=== PATIENT | female | born 1960 | race Caucasian/White ===

== ENCOUNTER → 2016-09-07 | Outpatient (CLI) | payer BC ==
--- NOTE | 2016-09-08 13:19 | MM ---
Reason for exam: clinical finding. History: Patient is postmenopausal. Indicated problem(s): lump or thickening in the left breast. Physical Findings: Nurse Summary: 6cm nodule in the left breast at 10-1 o'clock (nurse mm). MG Diagnostic Mammo w CAD JAXSNO Bilateral CC and MLO view(s) were taken. The breast tissue is heterogeneously dense. This may lower the sensitivity of mammography. Finding: There is a 42 mm high density, round mass in the 12 o'clock position of the left breast. There is skin thickening on the left. These results were verbally communicated with the patient and result sheet given to the patient on 09/07/16. ASSESSMENT: Suspicious, BI-RAD 4 RECOMMENDATION: Surgical consultation and ultrasound core biopsy of the left breast. x2 Called [facility] with mammographic findings and has scheduled an appointment for the patient for 09/19/16 at 1:[address] Anderson. PRELIMINARY REPORT CALLED AND FAXED TO DR. ANDERSON ON 09/08/16 AT 300/TP.
--- NOTE | 2016-09-08 13:26 | USB ---
Reason for exam: clinical finding. History: Patient is postmenopausal. US Breast LT Left breast ultrasound includes all four quadrants, the retroareolar region and axilla. Finding demonstrate a 0.8 x 0.6 x 0.5cm solid lesion at 12 o'clock for which a biopsy is recommended, a 0.5 x 0.3 x 0.5cm solid lesion at 1 o'clock, a 0.9 x 0.6 x 0.9 solid, vascular lesion at 2 o'clock, a 4.0 x 4.8 x 4.1cm solid lesion at 11 o'clock for which a biopsy is recommended, and a 0.9 x 0.7 x 0.9cm solid questionable node at axilla tail. These results were verbally communicated with the patient and result sheet given to the patient on 09/07/16. ASSESSMENT: Suspicious, BI-RAD 4 RECOMMENDATION: Ultrasound core biopsy of the left breast. Called Dr. Prasad with mammographic findings and has scheduled an appointment for the patient for 09/19/16 at 1:[address] Anderson. PRELIMINARY REPORT CALLED AND FAXED TO DR. ANDERSON ON 09/08/16 AT 300/TMP.
== END | disposition home or self-care (01) ==
LOC: RADMAMWWP 14:12
PROVIDERS: ATTEND Family Medicine
DX: N63 Unspecified lump in breast (principal); R92.8 Other abnormal and inconclusive findings on diagnostic imaging of breast
CPT/HCPCS: 76641; G0204

== ENCOUNTER → 2016-09-21 | Day surgery (SDC) | payer BC ==
[~2016-09-21] MED LIST: BACITRACIN OINT 1 EACH PACKET TOPICAL ONE; LIDOCAINE 1% INJ 10MG/ML (20 ML MDV) ONE; LIDOCAINE 1%-EPI 1:100,000 20 ML VIAL ONE
--- NOTE | 2016-09-21 14:25 | USB ---
EXAMINATION TYPE: US biopsy breast add'l VAD LT, US biopsy breast VAD LT DATE OF EXAM: 09/21/2016 CLINICAL HISTORY: R92.8 ABNORMAL MAMMOGRAM. TECHNIQUE: Ultrasound guided core biopsy of left 11:00 mass and first abnormal lymph node left breast. COMPARISON: NONE FINDINGS: The procedure of ultrasound guided core biopsy was explained to the patient. Benefits, alternatives, and risks were discussed. An informed consent was then obtained. The patient was placed in supine positioning for imaging and for the procedure. The overlying skin was prepped and draped in usual sterile fashion. Lidocaine buffered with bicarbonate was used as anesthetic into the skin and subcutaneous tissue. A rose was made with surgical scalpel. Under ultrasound guidance, a 12-gauge vacuum assisted biopsy gun device was used to obtain 5 core samples of left 11:00 mass and 4 samples of the first abnormal lymph node in the region of the axillary tail. Following this, a biopsy clips were left in place within the lesions. The patient tolerated the procedure well without any immediate complication. The patient was kept in the radiology department for short stay after the procedure and then discharged home in stable condition. IMPRESSION: Successful, uncomplicated ultrasound guided core biopsy of left 11: 00 mass and first abnormal lymph node left breast. Pathology Results: Malignant A. 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 B. 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 FRAGMENTS OF SKELETAL MUSCLE, SEE COMMENT. Recommendation Surgical consult of the left breast. JULIA
--- NOTE | 2016-09-27 13:31 | CDI ---
Dr. Anderson Ms Castro was seen on 09/21 for a biopsy of a breast mass and abnormal lymph node of the left breast. 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 According to the Official Guidelines for Coding and Reporting, in the outpatient setting diagnosis documented as consistent with fits the definition of a probable or suspected condition. Further clarification is required when a suspected condition is reported. Please clarify for proper reporting purposes. High grade ductal carcinoma with metastasis to axillary lymph node High grade ductal carcinoma without metastasis to axillary lymph node Other (please specify) Please document your findings in an addendum to the procedure note. If you have any questions about this query, you may contact Quality ReviewerNicole at between 8am and 6pm Monday-Monday Thank you for your time. LUDMILA Chahal
== END ==
LOC: RADUSWWP 12:58
PROVIDERS: ATTEND Surgery
DX: C50.912 Malignant neoplasm of unspecified site of left female breast (principal); C77.3 Secondary and unspecified malignant neoplasm of axilla and upper limb lymph nodes; R92.8 Other abnormal and inconclusive findings on diagnostic imaging of breast
CPT/HCPCS: 88305; 88342; 88341; 19083; 19084; A4648; J2001

== ENCOUNTER → 2017-09-08 | Outpatient (CLI) | payer BC ==
--- NOTE | 2017-09-12 10:11 | MM ---
Reason for exam: additional evaluation requested from prior study. Last mammogram was performed 1 year ago. History: Patient is postmenopausal and has history of breast cancer at age 56. Radiation therapy, May 2017. Mastectomy of the left breast, March 2017. Chemotherapy, February 2017. Malignant US biopsy breast VAD LT of the left breast, September 21, 2016. Malignant US biopsy breast add'l VAD LT of the left breast, September 21, 2016. Physical Findings: Nurse did not find any significant physical abnormalities on exam. MG 3D Diag Mammo W/Cad RT CC and MLO view(s) were taken of the right breast. Prior study comparison: September 07, 2016, bilateral MG diagnostic mammo w CAD JAXSON. These results were verbally communicated with the patient and result sheet given to the patient on 09/08/17. ASSESSMENT: Benign, BI-RAD 2 RECOMMENDATION: Follow-up diagnostic mammogram of the right breast in 1 year.
== END | disposition home or self-care (01) ==
LOC: RADMAMWWP 10:27
PROVIDERS: ATTEND Radiology Radiation Oncology
DX: Z08 Encounter for follow-up examination after completed treatment for malignant neoplasm (principal); Z85.3 Personal history of malignant neoplasm of breast
CPT/HCPCS: 77061; 77065